=== PATIENT | male | born 1945 | race African-American/Black ===

== ENCOUNTER 2017-01-31 10:51 | Inpatient (IN) | payer MEDICARE, OTHER ==
[~2017-01-31] VITALS: Ht 190.5 cm; Wt 72.3 kg
[2017-01-31] MEDS ORDERED: OXYC10 PO (10:57)
[2017-01-31] MEDS ORDERED: HYPERTENSION PO (10:57)
[2017-01-31 11:56] LABS: HEMATOCRIT 34.7 % (41-53); HEMOGLOBIN 11.3 g/dL (13.5-17.5); MEAN CORPUSCULAR HEMOGLOBIN 22.4 pg (26.0-34.0); MEAN CORPUSCULAR HGB CONC 32.5 G/dL (31.0-37.0); MEAN CORPUSCULAR VOLUME 69 fL (80-100); PLATELET COUNT (AUTO) 199 K/uL (150-450); RED BLOOD CELL COUNT(AUTO) 5.03 MIL/uL (4.50-5.90); RED CELL DISTRIBUTION WIDTH 20.5 % (11.5-14.5); WHITE BLOOD COUNT (AUTO) 3.8 K/uL (4.5-11.0)
[2017-01-31] MEDS ORDERED: ALBUTEROL SULFATE 2.5 MG/0.5 ML NEB SOLUTION NEB ONE (12:00)
[2017-01-31] MEDS ORDERED: IPRATROPIUM BROMIDE 0.5 MG/2.5 ML NEB SOLUTION NEB ONE (12:00)
[2017-01-31 12:10] LABS: B-TYPE NATRIURETIC PEPTIDE 107 pg/mL (0-100)
[2017-01-31 12:21] LABS: PROTHROMBIN TIME 10.9 SEC (9.4-11.6)
[2017-01-31 12:23] LABS: ALANINE AMINOTRANSFERASE 40 U/L (12-78); ALBUMIN 3.2 g/dL (3.4-5.0); ANION GAP 6 mmol/L (8-16); ASPARTATE AMINOTRANSFERASE 61 U/L (15-37); BILIRUBIN,TOTAL 0.5 mg/dL (0.1-1.0); CALCIUM, TOTAL 8.5 mg/dL (8.8-10.5); CARBON DIOXIDE 24 mmol/L (22-29); CHLORIDE 104 mmol/L (98-107); CREATINE KINASE MB 2.1 ng/mL (0-5); CREATINE KINASE, TOTAL 123 U/L (39-308); CREATININE 1.13 mg/dL (0.60-1.30); GLOMERULAR FILTR. RATE CALC > 60 mL/min (>60); POTASSIUM 4.1 mmol/L (3.5-5.1); SODIUM SERUM 134 mmol/L (136-145); TOTAL PROTEIN, SERUM 7.9 g/dL (6.4-8.2)
[2017-01-31 12:38] LABS: UREA NITROGEN, BLOOD 14 mg/dL (7-18)
[2017-01-31] MEDS ORDERED: ONDANSETRON HCL 4 MG/2 ML VIAL IVP PRN (12:45)
[2017-01-31] MEDS ORDERED: MAGNESIUM HYDROXIDE SUSPENSION 30 ML UDCUP PO PRN (12:45)
[2017-01-31] MEDS ORDERED: HEPARIN SODIUM 25000 UNITS/D5W 250 ML IV PRN (12:45)
[2017-01-31] MEDS ORDERED: ACETAMINOPHEN 325 MG TABLET PO PRN ×2 (12:45)
[2017-01-31] MEDS ORDERED: ASPIRIN 81 MG CHEWABLE TABLET PO ONE (12:45)
[2017-01-31] MEDS ORDERED: ALBUTEROL SULFATE 2.5 MG/0.5 ML NEB SOLUTION NEB PRN (12:45)
[2017-01-31] MEDS ORDERED: HEPARIN SODIUM,PORCINE 5,000 UNITS/ML VIAL IVP ONE ×2 (12:45)
[2017-01-31] MEDS ORDERED: 0.9% SODIUM CHLORIDE 10 ML SYRINGE IVP PRN (12:45)
[2017-01-31] MEDS ORDERED: HEPARIN SODIUM,PORCINE 5,000 UNITS/ML VIAL IVP PRN ×2 (12:45)
[2017-01-31 12:52] LABS: BAND NEUTROPHILS % (MANUAL) 2 % (1-5); LYMPHOCYTES % (MANUAL) 35 % (22-44); TOTAL CELLS COUNTED 100
[2017-01-31 12:53] LABS: RBC MORPHOLOGY COMMENT ABNORMAL R
[2017-01-31] MEDS: PANTOPRAZOLE SODIUM 40 MG DR TABLET PO SCH (13:00)
[2017-01-31] MEDS ORDERED: NITROGLYCERIN 2% (1 GM=INCH) PACKET TP ONE (13:15)
[2017-01-31] MEDS ORDERED: MORPHINE SULFATE 4 MG/ML SYRINGE IVP ONE (13:15)
[2017-01-31] MEDS ORDERED: ONDANSETRON HCL 4 MG/2 ML VIAL IVP ONE (13:15)
[2017-01-31 13:16] LABS: INR 1.1 (0.9-1.1); PROTHROMBIN TIME 11.1 SEC (9.4-11.6)
[2017-01-31 13:41] LABS: APPEARANCE,URINE CLEAR (CLEAR); GLUCOSE, URINE (UA) NEGATIVE (NEGATIVE); KETONES,URINE NEGATIVE (NEGATIVE); LEUKOCYTE ESTERASE ,URINE TRACE (NEGATIVE); OCCULT BLOOD,URINE NEGATIVE (NEGATIVE); PROTEIN,URINE NEGATIVE (NEGATIVE)
[2017-01-31 13:42] LABS: ADD UA MICROSCOPIC YES
[2017-01-31 13:45] LABS: RBC,URINE None Seen /HPF (0-2); WBC,URINE 0-2 /HPF (0-5)
[2017-01-31 15:12] LABS: GLUCOSE,POINT OF CARE 109 MG/DL (70-110)
[2017-01-31] MEDS ORDERED: NOREPINEPHRINE 4 MG/D5%-WATER 250 ML IV ONE (15:24)
[2017-01-31 15:40] VITALS: BP 96/62
[2017-01-31 16:00] VITALS: BP 109/73
[2017-01-31] MEDS ORDERED: DEXTROSE 50%-WATER 25 GM/50 ML SYRINGE IVP PRN (16:00)
[2017-01-31] MEDS: ASPIRIN 81 MG CHEWABLE TABLET PO SCH (17:05)
[2017-01-31 20:00] VITALS: BP 130/68
[2017-01-31] MEDS: ATORVASTATIN CALCIUM 40 MG TABLET PO SCH (22:53)
[2017-01-31] MEDS: DOCUSATE SODIUM 100 MG CAPSULE PO SCH (22:53)
[2017-02-01] VITALS: BP 131/71
[2017-02-01 03:16] LABS: ANION GAP 5 mmol/L (8-16); CARBON DIOXIDE 26 mmol/L (22-29); CHLORIDE 105 mmol/L (98-107); CREATININE 1.13 mg/dL (0.60-1.30); GLOMERULAR FILTR. RATE CALC > 60 mL/min (>60); POTASSIUM 4.4 mmol/L (3.5-5.1); SODIUM SERUM 136 mmol/L (136-145); UREA NITROGEN, BLOOD 13 mg/dL (7-18)
[2017-02-01 03:25] LABS: HEMATOCRIT 30.5 % (41-53); HEMOGLOBIN 9.6 g/dL (13.5-17.5); MEAN CORPUSCULAR HEMOGLOBIN 22.3 pg (26.0-34.0); MEAN CORPUSCULAR HGB CONC 31.4 G/dL (31.0-37.0); MEAN CORPUSCULAR VOLUME 71 fL (80-100); PLATELET COUNT (AUTO) 165 K/uL (150-450); RED BLOOD CELL COUNT(AUTO) 4.31 MIL/uL (4.50-5.90); RED CELL DISTRIBUTION WIDTH 20.4 % (11.5-14.5); WHITE BLOOD COUNT (AUTO) 3.5 K/uL (4.5-11.0)
[2017-02-01 03:55] LABS: BAND NEUTROPHILS % (MANUAL) 2 % (1-5); TOTAL CELLS COUNTED 100
[2017-02-01 03:56] LABS: EOSINOPHILS % (MANUAL) 2 % (1-6); LYMPHOCYTES % (MANUAL) 46 % (22-44); RBC MORPHOLOGY COMMENT ABNORMAL RBC MORPH
[2017-02-01 04:00] VITALS: BP 139/74
[2017-02-01] MEDS ORDERED: HEPARIN SODIUM 25000 UNITS/D5W 250 ML IV PRN (06:36)
[2017-02-01] MEDS ORDERED: HEPARIN SODIUM,PORCINE 5,000 UNITS/ML VIAL IVP PRN ×2 (06:45)
[2017-02-01] MEDS ORDERED: HEPARIN SODIUM,PORCINE 5,000 UNITS/ML VIAL IVP ONE (06:45)
[2017-02-01 08:00] VITALS: BP 170/86
[2017-02-01] MEDS: PANTOPRAZOLE SODIUM 40 MG DR TABLET PO SCH (08:41)
[2017-02-01] MEDS: DOCUSATE SODIUM 100 MG CAPSULE PO SCH ×2 (08:41→20:30)
[2017-02-01] MEDS: ASPIRIN 81 MG CHEWABLE TABLET PO SCH (08:41)
[2017-02-01 10:51] LABS: GLUCOSE,POINT OF CARE 110 MG/DL (70-110)
[2017-02-01 10:55] LABS: GLUCOSE,POINT OF CARE 96 MG/DL (70-110)
[2017-02-01 11:09] LABS: GLUCOSE,POINT OF CARE 76 MG/DL (70-110)
[2017-02-01 12:00] VITALS: BP 152/107
[2017-02-01 16:43] VITALS: BP 146/80
[2017-02-01] MEDS ORDERED: NICOTINE 7 MG/24 HOUR PATCH TD ONE (16:45)
[2017-02-01 17:08] LABS: GLUCOSE,POINT OF CARE 76 MG/DL (70-110)
[2017-02-01 20:00] VITALS: BP 152/74
[2017-02-01] MEDS: ATORVASTATIN CALCIUM 40 MG TABLET PO SCH (20:30)
[2017-02-01] MEDS: NICOTINE 21 MG/24 HOUR PATCH TD SCH (20:31)
[2017-02-01] MEDS: INSULIN ASPART 100 UNITS/ML SQ PRN (21:06)
[2017-02-01 21:12] LABS: GLUCOSE,POINT OF CARE 117 MG/DL (70-110)
[2017-02-02] VITALS (20 sets, daily range): BP systolic 96–153; BP diastolic 50–93
[2017-02-02 04:52] LABS: GLUCOSE,POINT OF CARE 89 MG/DL (70-110)
[2017-02-02] MEDS: INSULIN ASPART 100 UNITS/ML SQ PRN (05:13)
[2017-02-02 05:41] LABS: HEMOGLOBIN 9.4 g/dL (13.5-17.5); MEAN CORPUSCULAR HEMOGLOBIN 22.9 pg (26.0-34.0); MEAN CORPUSCULAR HGB CONC 32.5 G/dL (31.0-37.0); MEAN CORPUSCULAR VOLUME 71 fL (80-100); PLATELET COUNT (AUTO) 172 K/uL (150-450); RED BLOOD CELL COUNT(AUTO) 4.11 MIL/uL (4.50-5.90); RED CELL DISTRIBUTION WIDTH 19.7 % (11.5-14.5); WHITE BLOOD COUNT (AUTO) 3.6 K/uL (4.5-11.0)
[2017-02-02 05:57] LABS: ANION GAP 5 mmol/L (8-16); CALCIUM, TOTAL 8.3 mg/dL (8.8-10.5); CARBON DIOXIDE 26 mmol/L (22-29); CHLORIDE 104 mmol/L (98-107); CREATININE 1.12 mg/dL (0.60-1.30); GLOMERULAR FILTR. RATE CALC > 60 mL/min (>60); POTASSIUM 4.2 mmol/L (3.5-5.1); SODIUM SERUM 135 mmol/L (136-145); UREA NITROGEN, BLOOD 18 mg/dL (7-18)
[2017-02-02] MEDS ORDERED: METOPROLOL TARTRATE 5 MG/5 ML VIAL ONE (08:05)
[2017-02-02] MEDS ORDERED: METOPROLOL TARTRATE 5 MG/5 ML VIAL IVP ONE (08:15)
[2017-02-02] MEDS ORDERED: LIDOCAINE HCL/PF 1% 30 ML VIAL ONE (08:45)
[2017-02-02] MEDS ORDERED: IOHEXOL 300 MG/ML 150 ML VIAL ONE (08:45)
[2017-02-02] MEDS ORDERED: HEPARIN SODIUM 1000 UNITS/NS 500 ML ONE ×2 (08:45→08:50)
[2017-02-02] MEDS ORDERED: IOHEXOL 300 MG/ML 100 ML VIAL ONE (09:04)
[2017-02-02] MEDS ORDERED: SODIUM CHLORIDE 0.9% 500 ML IV ONE (09:18)
[2017-02-02] MEDS ORDERED: HEPARIN SODIUM 1000 UNITS/NS 1,000 ML IARTER ONE (09:18)
[2017-02-02] MEDS ORDERED: TICAGRELOR 90 MG TABLET ONE (09:22)
[2017-02-02] MEDS ORDERED: ASPIRIN 81 MG CHEWABLE TABLET ONE (09:22)
[2017-02-02 09:29] LABS: BAND NEUTROPHILS % (MANUAL) 1 % (1-5); EOSINOPHILS % (MANUAL) 2 % (1-6); LYMPHOCYTES % (MANUAL) 47 % (22-44); TOTAL CELLS COUNTED 100
[2017-02-02] MEDS ORDERED: IOHEXOL 300 MG/ML 150 ML VIAL IARTER ONE (09:30)
[2017-02-02] MEDS ORDERED: LIDOCAINE HCL/PF 1% 30 ML VIAL INJ ONE (09:30)
[2017-02-02 09:32] LABS: RBC MORPHOLOGY COMMENT ABNORMAL R
[2017-02-02] MEDS: NICOTINE 21 MG/24 HOUR PATCH TD SCH (11:39)
[2017-02-02] MEDS: PANTOPRAZOLE SODIUM 40 MG DR TABLET PO SCH (11:39)
[2017-02-02] MEDS: DOCUSATE SODIUM 100 MG CAPSULE PO SCH ×2 (11:39→21:42)
[2017-02-02 12:22] LABS: GLUCOSE,POINT OF CARE 83 MG/DL (70-110)
[2017-02-02] MEDS ORDERED: MORPHINE SULFATE 2 MG/ML SYRINGE IVP ONE (13:45)
[2017-02-02] MEDS ORDERED: METOPROLOL SUCCINATE 25 MG ER TABLET PO SCH (13:45)
[2017-02-02] MEDS ORDERED: MORPHINE SULFATE 4 MG/ML SYRINGE ONE (13:52)
[2017-02-02] MEDS ORDERED: 0.9% SODIUM CHLORIDE 10 ML SYRINGE IVP PRN (16:00)
[2017-02-02] MEDS ORDERED: ONDANSETRON HCL 4 MG/2 ML VIAL IVP PRN (16:00)
[2017-02-02 17:12] LABS: GLUCOSE,POINT OF CARE 100 MG/DL (70-110)
[2017-02-02] MEDS: METOPROLOL TARTRATE 25 MG TABLET PO SCH (21:42)
[2017-02-02] MEDS: ATORVASTATIN CALCIUM 40 MG TABLET PO SCH (21:42)
[2017-02-02] MEDS: TICAGRELOR 90 MG TABLET PO SCH (23:52)
[2017-02-03 02:03] LABS: GLUCOSE,POINT OF CARE 110 MG/DL (70-110)
[2017-02-03 05:17] VITALS: BP 136/78
[2017-02-03] MEDS: LORazepam 2 MG/ML VIAL IVP PRN ×4 (06:39→20:12)
[2017-02-03 08:03] LABS: ANION GAP 10 mmol/L (8-16); CALCIUM, TOTAL 8.8 mg/dL (8.8-10.5); CARBON DIOXIDE 25 mmol/L (22-29); CHLORIDE 100 mmol/L (98-107); CREATININE 1.19 mg/dL (0.60-1.30); GLOMERULAR FILTR. RATE CALC > 60 mL/min (>60); POTASSIUM 3.9 mmol/L (3.5-5.1); SODIUM SERUM 135 mmol/L (136-145); UREA NITROGEN, BLOOD 19 mg/dL (7-18)
[2017-02-03 08:13] LABS: BASOPHILS # (AUTO) 0.01 K/uL (0.00-0.20); BASOPHILS % (AUTO) 0.1 % (0.0-2.0); EOSINOPHILS # (AUTO) 0.01 K/uL (0.00-0.70); EOSINOPHILS % (AUTO) 0.07 % (1.0-6.0); HEMATOCRIT 31.8 % (41-53); LYMPHOCYTES % (AUTO) 10.8 % (22.0-44.0); MEAN CORPUSCULAR HEMOGLOBIN 22.5 pg (26.0-34.0); MEAN CORPUSCULAR HGB CONC 31.5 G/dL (31.0-37.0); MEAN CORPUSCULAR VOLUME 71 fL (80-100); MONOCYTES # (AUTO) 1.1 K/uL (0.1-1.0); MONOCYTES % (AUTO) 12.7 % (2.0-9.0); NEUTROPHILS # (AUTO) 6.9 K/uL (1.8-7.7); NEUTROPHILS % (AUTO) 76.3 % (40.0-70.0); PLATELET COUNT (AUTO) 219 K/uL (150-450); RED BLOOD CELL COUNT(AUTO) 4.45 MIL/uL (4.50-5.90); RED CELL DISTRIBUTION WIDTH 20.2 % (11.5-14.5)
[2017-02-03] MEDS: TICAGRELOR 90 MG TABLET PO SCH ×2 (08:58→20:11)
[2017-02-03] MEDS: ASPIRIN 81 MG CHEWABLE TABLET PO SCH (08:58)
[2017-02-03] MEDS: PANTOPRAZOLE SODIUM 40 MG DR TABLET PO SCH (08:59)
[2017-02-03] MEDS: DOCUSATE SODIUM 100 MG CAPSULE PO SCH ×2 (08:59→20:11)
[2017-02-03] MEDS: METOPROLOL TARTRATE 25 MG TABLET PO SCH ×2 (08:59→20:11)
[2017-02-03] MEDS: NICOTINE 21 MG/24 HOUR PATCH TD SCH (08:59)
[2017-02-03 09:42] VITALS: BP 146/84
[2017-02-03 11:57] VITALS: BP 140/82
[2017-02-03 15:23] VITALS: BP 153/83
[2017-02-03 19:35] VITALS: BP 148/74
[2017-02-03] MEDS: ATORVASTATIN CALCIUM 40 MG TABLET PO SCH (20:11)
[2017-02-03 23:24] VITALS: BP 150/79
[2017-02-04 05:14] VITALS: BP 140/80
[2017-02-04 05:27] LABS: GLUCOSE,POINT OF CARE 117 MG/DL (70-110)
[2017-02-04 05:28] LABS: GLUCOSE,POINT OF CARE 94 MG/DL (70-110)
[2017-02-04 06:38] LABS: BASOPHILS % (AUTO) 0.7 % (0.0-2.0); EOSINOPHILS % (AUTO) 2.5 % (1.0-6.0); HEMATOCRIT 30.3 % (41-53); HEMOGLOBIN 9.7 g/dL (13.5-17.5); LYMPHOCYTES # (AUTO) 1.9 K/uL (1.0-4.8); MEAN CORPUSCULAR HEMOGLOBIN 22.9 pg (26.0-34.0); MEAN CORPUSCULAR HGB CONC 31.9 G/dL (31.0-37.0); MEAN CORPUSCULAR VOLUME 72 fL (80-100); MONOCYTES # (AUTO) 0.9 K/uL (0.1-1.0); MONOCYTES % (AUTO) 15.1 % (2.0-9.0); NEUTROPHILS # (AUTO) 3.3 K/uL (1.8-7.7); NEUTROPHILS % (AUTO) 51.7 % (40.0-70.0); PLATELET COUNT (AUTO) 226 K/uL (150-450); RED BLOOD CELL COUNT(AUTO) 4.22 MIL/uL (4.50-5.90); RED CELL DISTRIBUTION WIDTH 20.3 % (11.5-14.5); WHITE BLOOD COUNT (AUTO) 6.3 K/uL (4.5-11.0)
[2017-02-04 06:47] LABS: ANION GAP 8 mmol/L (8-16); CALCIUM, TOTAL 8.4 mg/dL (8.8-10.5); CARBON DIOXIDE 26 mmol/L (22-29); CHLORIDE 105 mmol/L (98-107); GLOMERULAR FILTR. RATE CALC > 60 mL/min (>60); POTASSIUM 4.1 mmol/L (3.5-5.1); SODIUM SERUM 139 mmol/L (136-145); UREA NITROGEN, BLOOD 17 mg/dL (7-18)
[2017-02-04 07:45] VITALS: BP 138/82
[2017-02-04] MEDS: TICAGRELOR 90 MG TABLET PO SCH ×2 (09:36→21:09)
[2017-02-04] MEDS: PANTOPRAZOLE SODIUM 40 MG DR TABLET PO SCH (09:36)
[2017-02-04] MEDS: NICOTINE 21 MG/24 HOUR PATCH TD SCH (09:36)
[2017-02-04] MEDS: METOPROLOL TARTRATE 25 MG TABLET PO SCH ×2 (09:36→21:08)
[2017-02-04] MEDS: DOCUSATE SODIUM 100 MG CAPSULE PO SCH ×2 (09:36→21:09)
[2017-02-04] MEDS: ASPIRIN 81 MG CHEWABLE TABLET PO SCH (09:36)
[2017-02-04 11:43] VITALS: BP 120/66
[2017-02-04 15:00] VITALS: BP 120/64
[2017-02-04 16:53] LABS: GLUCOSE,POINT OF CARE 80 MG/DL (70-110)
[2017-02-04 16:53] LABS: GLUCOSE,POINT OF CARE 105 MG/DL (70-110)
[2017-02-04 16:53] LABS: GLUCOSE,POINT OF CARE 88 MG/DL (70-110)
[2017-02-04 16:54] LABS: GLUCOSE,POINT OF CARE 91 MG/DL (70-110)
[2017-02-04 20:10] VITALS: BP 124/73
[2017-02-04] MEDS: ATORVASTATIN CALCIUM 40 MG TABLET PO SCH (21:08)
[2017-02-04] MEDS: LORazepam 2 MG/ML VIAL IVP PRN (21:10)
[2017-02-04 22:37] LABS: GLUCOSE,POINT OF CARE 102 MG/DL (70-110)
[2017-02-05 00:57] VITALS: BP 124/74
[2017-02-05 05:23] VITALS: BP 125/74
[2017-02-05 07:14] LABS: BASOPHILS % (AUTO) 1.4 % (0.0-2.0); EOSINOPHILS % (AUTO) 2.8 % (1.0-6.0); HEMATOCRIT 28.8 % (41-53); HEMOGLOBIN 9.5 g/dL (13.5-17.5); LYMPHOCYTES # (AUTO) 1.4 K/uL (1.0-4.8); LYMPHOCYTES % (AUTO) 31.9 % (22.0-44.0); MEAN CORPUSCULAR HEMOGLOBIN 23.3 pg (26.0-34.0); MEAN CORPUSCULAR VOLUME 71 fL (80-100); MONOCYTES # (AUTO) 0.9 K/uL (0.1-1.0); MONOCYTES % (AUTO) 18.9 % (2.0-9.0); PLATELET COUNT (AUTO) 206 K/uL (150-450); RED BLOOD CELL COUNT(AUTO) 4.07 MIL/uL (4.50-5.90); RED CELL DISTRIBUTION WIDTH 20.3 % (11.5-14.5); WHITE BLOOD COUNT (AUTO) 4.5 K/uL (4.5-11.0)
[2017-02-05 08:03] VITALS: BP 132/81
[2017-02-05 08:22] LABS: GLUCOSE,POINT OF CARE 82 MG/DL (70-110)
[2017-02-05] MEDS: METOPROLOL TARTRATE 25 MG TABLET PO SCH (08:36)
[2017-02-05] MEDS: TICAGRELOR 90 MG TABLET PO SCH (08:36)
[2017-02-05] MEDS: ASPIRIN 81 MG CHEWABLE TABLET PO SCH (08:36)
[2017-02-05] MEDS: PANTOPRAZOLE SODIUM 40 MG DR TABLET PO SCH (08:36)
[2017-02-05] MEDS: DOCUSATE SODIUM 100 MG CAPSULE PO SCH (08:37)
[2017-02-05] MEDS: NICOTINE 21 MG/24 HOUR PATCH TD SCH (08:38)
[2017-02-05 09:30] LABS: RBC MORPHOLOGY COMMENT ABNORMAL RBC MORPH
[2017-02-05 12:20] VITALS: BP 119/70
[2017-02-05 15:02] LABS: GLUCOSE,POINT OF CARE 110 MG/DL (70-110)
[2017-02-05] MEDS ORDERED: DSS100 PO (15:25)
[2017-02-05] MEDS ORDERED: ASPI-1061 PO (15:25)
[2017-02-05] MEDS ORDERED: ATOR40TA28 PO (15:25)
[2017-02-05] MEDS ORDERED: NICO21T TD (15:26)
[2017-02-05] MEDS ORDERED: METO25 PO (15:26)
[2017-02-05] MEDS ORDERED: PANT40TA25 PO (15:26)
[2017-02-05] MEDS ORDERED: TICA90TA PO (15:27)
[2017-02-05] MEDS ORDERED: ACET-2247 PO (15:28)
[2017-02-05] MEDS ORDERED: AUD NEB (15:29)
[2017-02-05] MEDS ORDERED: INSNOV SQ (15:30)
[2017-02-05] MEDS ORDERED: MOM30 PO (15:30)
[2017-02-05] MEDS ORDERED: ONDA4 PO (15:31)
[2017-02-11 06:23] LABS: GLUCOSE,POINT OF CARE 83 MG/DL (70-110)
== END 2017-02-05 17:20 | disposition home or self-care (01) | DRG 281 ==
LOC: EMS 10:53 → 5S 13:17 → ICU 15:35 → 5S 02-02 17:05
PROVIDERS: ADMIT Internal Medicine; ATTEND Internal Medicine
PROC: 4A023N7 Measurement of Cardiac Sampling and Pressure, Left Heart, Percutaneous Approach (ICD-10-PCS; principal; 2017-02-02)
PROC: B2151ZZ Fluoroscopy of Left Heart using Low Osmolar Contrast (ICD-10-PCS; 2017-02-02)
PROC: B2111ZZ Fluoroscopy of Multiple Coronary Arteries using Low Osmolar Contrast (ICD-10-PCS; 2017-02-02)
PROC: B41G1ZZ Fluoroscopy of Left Lower Extremity Arteries using Low Osmolar Contrast (ICD-10-PCS; 2017-02-02)
DX: I21.4 Non-ST elevation (NSTEMI) myocardial infarction (principal); J98.11 Atelectasis; J44.9 Chronic obstructive pulmonary disease, unspecified; E11.9 Type 2 diabetes mellitus without complications; I10 Essential (primary) hypertension; F17.210 Nicotine dependence, cigarettes, uncomplicated; F15.90 Other stimulant use, unspecified, uncomplicated; F19.10 Other psychoactive substance abuse, uncomplicated; D64.9 Anemia, unspecified; I25.10 Atherosclerotic heart disease of native coronary artery without angina pectoris; F03.90 Unspecified dementia, unspecified severity, without behavioral disturbance, psychotic disturbance, mood disturbance, and anxiety; Z79.82 Long term (current) use of aspirin; Z79.4 Long term (current) use of insulin; Z91.19 Patient's noncompliance with other medical treatment and regimen; Z86.73 Personal history of transient ischemic attack (TIA), and cerebral infarction without residual deficits; Z59.0 Homelessness; Z95.5 Presence of coronary angioplasty implant and graft; Z83.3 Family history of diabetes mellitus; Z90.49 Acquired absence of other specified parts of digestive tract; Z82.49 Family history of ischemic heart disease and other diseases of the circulatory system; Z79.01 Long term (current) use of anticoagulants
CPT/HCPCS: 82962; 87081; 93005; 93306; 94640; 96374; 97163; 97166; 97535; 99291; J1644; J2060; J2270; J2405; J3490; Q9967

== ENCOUNTER 2018-04-02 11:39 | Inpatient (IN) | payer MEDICARE, OTHER ==
[~2018-04-02] VITALS: Ht 182.9 cm; Wt 68.6 kg
[~2018-04-02 11:39] MED LIST: ACET-2247 PO; ASPI81TA87 PO; ATOR40TA28 PO; AUD NEB; DSS100 PO; INSNOV SQ; METO25 PO; MOM30 PO; NICO21T TD; PANT40TA25 PO
[2018-04-02] MEDS ORDERED: DONE5TAB5 PO (12:08)
[2018-04-02] MEDS ORDERED: XALA2.5OS OU (12:15)
[2018-04-02] MEDS ORDERED: HYDR-309 PO (12:17)
[2018-04-02] MEDS ORDERED: PANT40TA PO (12:17)
[2018-04-02] MEDS ORDERED: FERR325T22 PO (12:20)
[2018-04-02 12:35] LABS: BASOPHILS % (AUTO) 0.7 % (0.0-2.0); EOSINOPHILS % (AUTO) 0.3 % (1.0-6.0); HEMATOCRIT 41.7 % (41-53); LYMPHOCYTES # (AUTO) 1.7 K/uL (1.0-4.8); LYMPHOCYTES % (AUTO) 22.3 % (22.0-44.0); MEAN CORPUSCULAR HEMOGLOBIN 27.8 pg (26.0-34.0); MEAN CORPUSCULAR HGB CONC 33.5 G/dL (31.0-37.0); MEAN CORPUSCULAR VOLUME 83 fL (80-100); MONOCYTES # (AUTO) 1.4 K/uL (0.1-1.0); MONOCYTES % (AUTO) 18.5 % (2.0-9.0); NEUTROPHILS # (AUTO) 4.5 K/uL (1.8-7.7); NEUTROPHILS % (AUTO) 58.2 % (40.0-70.0); PLATELET COUNT (AUTO) 351 K/uL (150-450); RED BLOOD CELL COUNT(AUTO) 5.02 MIL/uL (4.50-5.90); RED CELL DISTRIBUTION WIDTH 15.5 % (11.5-14.5)
[2018-04-02 12:55] LABS: ANION GAP 8 mmol/L (8-16); CALCIUM, TOTAL 8.1 mg/dL (8.8-10.5); CARBON DIOXIDE 25 mmol/L (22-29); CHLORIDE 99 mmol/L (98-107); CREATININE 0.85 mg/dL (0.60-1.30); GLUCOSE,RANDOM 126 mg/dL (70-110); POTASSIUM 3.7 mmol/L (3.5-5.1); SODIUM SERUM 132 mmol/L (136-145); UREA NITROGEN, BLOOD 8 mg/dL (7-18)
[2018-04-02 12:56] LABS: GLOMERULAR FILTR. RATE CALC > 60 mL/min (>60)
[2018-04-02 13:00] LABS: ALANINE AMINOTRANSFERASE 41 U/L (12-78); ALBUMIN 1.9 g/dL (3.4-5.0); ALKALINE PHOSPHATASE 100 U/L (46-116); ASPARTATE AMINOTRANSFERASE 58 U/L (15-37); BILIRUBIN,TOTAL 0.6 mg/dL (0.1-1.0); LIPASE 331 U/L (73-393); TOTAL PROTEIN, SERUM 8.3 g/dL (6.4-8.2)
[2018-04-02] MEDS ORDERED: SODIUM CHLORIDE 0.9% 1,000 ML IV ONE ×2 (13:15→15:00)
[2018-04-02] MEDS ORDERED: MORPHINE SULFATE 2 MG/ML SYRINGE IVP ONE (13:30)
[2018-04-02] MEDS ORDERED: IOVERSOL 350 MG/ML 100 ML VIAL ONE (13:43)
[2018-04-02] MEDS ORDERED: SODIUM CHLORIDE 0.9% 100 ML ONE (13:43)
[2018-04-02] MEDS ORDERED: ALBUTEROL SULFATE 2.5 MG/0.5 ML NEB SOLUTION NEB PRN (15:00)
[2018-04-02] MEDS ORDERED: ONDANSETRON HCL 4 MG/2 ML VIAL IVP PRN (15:00)
[2018-04-02] MEDS ORDERED: MAGNESIUM HYDROXIDE SUSPENSION 30 ML UDCUP PO PRN (15:00)
[2018-04-02] MEDS ORDERED: LORazepam 2 MG/ML VIAL IVP ONE (15:00)
[2018-04-02] MEDS ORDERED: 0.9% SODIUM CHLORIDE 10 ML SYRINGE IVP PRN (15:00)
[2018-04-02] MEDS ORDERED: DEXTROSE 50%-WATER 25 GM/50 ML SYRINGE IVP PRN (15:00)
[2018-04-02] MEDS ORDERED: ACETAMINOPHEN 325 MG TABLET PO PRN (15:00)
[2018-04-02] MEDS: ENOXAPARIN SODIUM 40 MG/0.4 ML PF SYRINGE SQ SCH (15:05)
[2018-04-02 17:33] LABS: APPEARANCE,URINE CLEAR (CLEAR); BILIRUBIN,URINE NEGATIVE (NEGATIVE); GLUCOSE, URINE (UA) NEGATIVE (NEGATIVE); KETONES,URINE NEGATIVE (NEGATIVE); LEUKOCYTE ESTERASE ,URINE NEGATIVE (NEGATIVE); NITRATE,URINE NEGATIVE (NEGATIVE); OCCULT BLOOD,URINE NEGATIVE (NEGATIVE); PROTEIN,URINE NEGATIVE (NEGATIVE)
[2018-04-02] MEDS ORDERED: MORPHINE SULFATE 4 MG/ML SYRINGE IVP ONE (17:45)
[2018-04-02 18:14] LABS: BACTERIA,URINE None Seen /HPF (None Seen); RBC,URINE None Seen /HPF (0-2); WBC,URINE 0-2 /HPF (0-5)
[2018-04-02 18:15] LABS: SQUAMOUS EPITHELIAL CELL,UR Rare /LPF (None Seen)
[2018-04-02 20:47] VITALS: BP 128/68
[2018-04-02] MEDS: DOCUSATE SODIUM 100 MG CAPSULE PO SCH ×2 (21:00→21:16)
[2018-04-02 23:30] LABS: GLUCOMETER DEV NAME(LOC) 6N 2D; GLUCOSE,POINT OF CARE 81 MG/DL (70-110)
[2018-04-02 23:59] VITALS: BP 132/74
[2018-04-03 04:00] VITALS: BP 145/82
[2018-04-03 07:13] VITALS: BP 133/82
[2018-04-03 07:36] LABS: GLUCOMETER DEV NAME(LOC) 6N 1E; GLUCOSE,POINT OF CARE 74 MG/DL (70-110)
[2018-04-03] MEDS: DOCUSATE SODIUM 100 MG CAPSULE PO SCH ×2 (08:39→21:12)
[2018-04-03] MEDS: ENOXAPARIN SODIUM 40 MG/0.4 ML PF SYRINGE SQ SCH (08:39)
[2018-04-03] MEDS: MORPHINE SULFATE 2 MG/ML SYRINGE IVP PRN (08:39)
[2018-04-03] MEDS: MULTIVITAMINS WITH MINERALS, THERAPEUTIC TABLET PO SCH (08:39)
[2018-04-03] MEDS ORDERED: ASPIRIN 81 MG CHEWABLE TABLET PO SCH (09:00)
[2018-04-03 11:58] VITALS: BP 128/69
[2018-04-03 15:42] VITALS: BP 122/71
[2018-04-03 17:09] LABS: GLUCOMETER DEV NAME(LOC) 6N 2D; GLUCOSE,POINT OF CARE 97 MG/DL (70-110)
[2018-04-03 19:21] VITALS: BP 118/71
[2018-04-04] VITALS (7 sets, daily range): BP systolic 116–145; BP diastolic 60–100
[2018-04-04 00:54] LABS: GLUCOMETER DEV NAME(LOC) 6N 1E; GLUCOSE,POINT OF CARE 105 MG/DL (70-110)
[2018-04-04 01:38] LABS: BASOPHILS % (AUTO) 1.2 % (0.0-2.0); EOSINOPHILS % (AUTO) 0.6 % (1.0-6.0); HEMATOCRIT 38.4 % (41-53); HEMOGLOBIN 12.8 g/dL (13.5-17.5); LYMPHOCYTES # (AUTO) 3.2 K/uL (1.0-4.8); LYMPHOCYTES % (AUTO) 31.8 % (22.0-44.0); MEAN CORPUSCULAR HEMOGLOBIN 27.6 pg (26.0-34.0); MEAN CORPUSCULAR HGB CONC 33.5 G/dL (31.0-37.0); MEAN CORPUSCULAR VOLUME 83 fL (80-100); MONOCYTES # (AUTO) 1.9 K/uL (0.1-1.0); MONOCYTES % (AUTO) 18.7 % (2.0-9.0); NEUTROPHILS # (AUTO) 4.8 K/uL (1.8-7.7); NEUTROPHILS % (AUTO) 47.7 % (40.0-70.0); PLATELET COUNT (AUTO) 355 K/uL (150-450); RED BLOOD CELL COUNT(AUTO) 4.65 MIL/uL (4.50-5.90); RED CELL DISTRIBUTION WIDTH 15.3 % (11.5-14.5)
[2018-04-04 01:44] LABS: ANION GAP 5 mmol/L (8-16); CALCIUM, TOTAL 7.8 mg/dL (8.8-10.5); CARBON DIOXIDE 26 mmol/L (22-29); CHLORIDE 101 mmol/L (98-107); CREATININE 0.74 mg/dL (0.60-1.30); GLUCOSE,RANDOM 90 mg/dL (70-110); SODIUM SERUM 132 mmol/L (136-145); UREA NITROGEN, BLOOD 5 mg/dL (7-18)
[2018-04-04 01:45] LABS: INR 1.2 (0.9-1.1); PROTHROMBIN TIME 12.3 SEC (9.4-11.6)
[2018-04-04 01:46] LABS: GLOMERULAR FILTR. RATE CALC > 60 mL/min (>60)
[2018-04-04 06:35] LABS: GLUCOMETER DEV NAME(LOC) 6N 2D; GLUCOSE,POINT OF CARE 91 MG/DL (70-110)
[2018-04-04] MEDS: MORPHINE SULFATE 2 MG/ML SYRINGE IVP PRN (07:56)
[2018-04-04] MEDS: DOCUSATE SODIUM 100 MG CAPSULE PO SCH ×2 (07:56→20:37)
[2018-04-04] MEDS: MULTIVITAMINS WITH MINERALS, THERAPEUTIC TABLET PO SCH (07:56)
[2018-04-04] MEDS: ACETAMINOPHEN 325 MG TABLET PO PRN (23:53)
[2018-04-05] MEDS: MORPHINE SULFATE 2 MG/ML SYRINGE IVP PRN (00:18)
[2018-04-05 04:28] VITALS: BP 102/60
[2018-04-05 06:32] LABS: GLUCOMETER DEV NAME(LOC) 6N 1E; GLUCOSE,POINT OF CARE 81 MG/DL (70-110)
[2018-04-05 06:35] LABS: BASOPHILS % (AUTO) 0.5 % (0.0-2.0); EOSINOPHILS % (AUTO) 0.8 % (1.0-6.0); HEMATOCRIT 36.8 % (41-53); HEMOGLOBIN 12.5 g/dL (13.5-17.5); LYMPHOCYTES # (AUTO) 2.5 K/uL (1.0-4.8); LYMPHOCYTES % (AUTO) 28.9 % (22.0-44.0); MEAN CORPUSCULAR HEMOGLOBIN 27.8 pg (26.0-34.0); MEAN CORPUSCULAR VOLUME 82 fL (80-100); MONOCYTES # (AUTO) 1.8 K/uL (0.1-1.0); MONOCYTES % (AUTO) 21.1 % (2.0-9.0); NEUTROPHILS # (AUTO) 4.2 K/uL (1.8-7.7); NEUTROPHILS % (AUTO) 48.7 % (40.0-70.0); PLATELET COUNT (AUTO) 351 K/uL (150-450); RED CELL DISTRIBUTION WIDTH 15.3 % (11.5-14.5)
[2018-04-05 06:43] LABS: INR 1.2 (0.9-1.1); PROTHROMBIN TIME 12.6 SEC (9.4-11.6)
[2018-04-05 06:57] LABS: ANION GAP 7 mmol/L (8-16); CALCIUM, TOTAL 8.1 mg/dL (8.8-10.5); CARBON DIOXIDE 26 mmol/L (22-29); CHLORIDE 102 mmol/L (98-107); CREATININE 0.66 mg/dL (0.60-1.30); GLUCOSE,RANDOM 92 mg/dL (70-110); POTASSIUM 3.3 mmol/L (3.5-5.1); SODIUM SERUM 135 mmol/L (136-145); UREA NITROGEN, BLOOD 6 mg/dL (7-18)
[2018-04-05 07:00] LABS: GLOMERULAR FILTR. RATE CALC > 60 mL/min (>60)
[2018-04-05] MEDS: ENOXAPARIN SODIUM 40 MG/0.4 ML PF SYRINGE SQ SCH (09:00)
[2018-04-05] MEDS: ASPIRIN 81 MG CHEWABLE TABLET PO SCH (09:00)
[2018-04-05] MEDS: DOCUSATE SODIUM 100 MG CAPSULE PO SCH ×2 (09:42→21:34)
[2018-04-05] MEDS: MULTIVITAMINS WITH MINERALS, THERAPEUTIC TABLET PO SCH (09:42)
[2018-04-05] MEDS ORDERED: POTASSIUM CHL 10 MEQ/WATER 50 ML IV PRN ×2 (10:30)
[2018-04-05] MEDS ORDERED: POTASSIUM CHLORIDE 20 MEQ ER TABLET PO PRN ×2 (10:30)
[2018-04-05] MEDS: LORazepam 2 MG/ML VIAL IVP PRN ×2 (10:38→16:02)
[2018-04-05] MEDS ORDERED: LIDOCAINE HCL/PF 1% 30 ML VIAL ONE (10:44)
[2018-04-05] MEDS ORDERED: GELATIN SPONGE,ABSORBABLE 12-7 MM TP ONE (10:44)
[2018-04-05 13:31] VITALS: BP 122/89
[2018-04-05 15:06] VITALS: BP 110/69
[2018-04-05 15:29] LABS: GLUCOMETER DEV NAME(LOC) 5S 2Q; GLUCOSE,POINT OF CARE 102 MG/DL (70-110)
[2018-04-05 16:47] LABS: BASOPHILS % (AUTO) 0.7 % (0.0-2.0); EOSINOPHILS % (AUTO) 0.1 % (1.0-6.0); HEMATOCRIT 42.5 % (41-53); HEMOGLOBIN 14.1 g/dL (13.5-17.5); LYMPHOCYTES # (AUTO) 1.5 K/uL (1.0-4.8); LYMPHOCYTES % (AUTO) 21.4 % (22.0-44.0); MEAN CORPUSCULAR HEMOGLOBIN 27.8 pg (26.0-34.0); MEAN CORPUSCULAR HGB CONC 33.2 G/dL (31.0-37.0); MEAN CORPUSCULAR VOLUME 84 fL (80-100); MONOCYTES # (AUTO) 1.2 K/uL (0.1-1.0); MONOCYTES % (AUTO) 17.6 % (2.0-9.0); NEUTROPHILS # (AUTO) 4.3 K/uL (1.8-7.7); NEUTROPHILS % (AUTO) 60.2 % (40.0-70.0); PLATELET COUNT (AUTO) 369 K/uL (150-450); RED BLOOD CELL COUNT(AUTO) 5.08 MIL/uL (4.50-5.90); RED CELL DISTRIBUTION WIDTH 15.3 % (11.5-14.5)
[2018-04-05 19:46] VITALS: BP 126/72
[2018-04-05] MEDS: INSULIN LISPRO 100 UNITS/ML SQ PRN (21:40)
[2018-04-05 21:43] LABS: GLUCOMETER DEV NAME(LOC) 5S 2Q; GLUCOSE,POINT OF CARE 109 MG/DL (70-110)
[2018-04-05] MEDS ORDERED: EPHEDrine SULFATE 50 MG/ML VIAL IM ONE (22:53)
[2018-04-05] MEDS ORDERED: LIDOCAINE HCL/PF 2% 5 ML SYRINGE IVP ONE (22:53)
[2018-04-05] MEDS ORDERED: PROPOFOL 1% 20 ML VIAL IVP ONE (22:53)
[2018-04-05] MEDS ORDERED: MIDAZOLAM HCL 2 MG/2 ML VIAL IVP ONE (22:53)
[2018-04-05 23:30] VITALS: BP 132/76
[2018-04-06 00:08] LABS: GLUCOMETER DEV NAME(LOC) 5S 2Q; GLUCOSE,POINT OF CARE 110 MG/DL (70-110)
[2018-04-06 04:15] VITALS: BP 130/79
[2018-04-06] MEDS: MORPHINE SULFATE 2 MG/ML SYRINGE IVP PRN ×2 (04:16→14:01)
[2018-04-06 05:55] LABS: APPEARANCE,URINE CLEAR (CLEAR); BILIRUBIN,URINE NEGATIVE (NEGATIVE); GLUCOSE, URINE (UA) NEGATIVE (NEGATIVE); KETONES,URINE NEGATIVE (NEGATIVE); LEUKOCYTE ESTERASE ,URINE TRACE (NEGATIVE); NITRATE,URINE POSITIVE (NEGATIVE); OCCULT BLOOD,URINE NEGATIVE (NEGATIVE); PROTEIN,URINE NEGATIVE (NEGATIVE)
[2018-04-06] MEDS: INSULIN LISPRO 100 UNITS/ML SQ PRN ×2 (05:58→20:27)
[2018-04-06 06:50] LABS: BACTERIA,URINE Few /HPF (None Seen); RBC,URINE 0-2 /HPF (0-2); SQUAMOUS EPITHELIAL CELL,UR Rare /LPF (None Seen); WBC,URINE 0-2 /HPF (0-5)
[2018-04-06 07:04] LABS: BASOPHILS % (AUTO) 0.5 % (0.0-2.0); EOSINOPHILS % (AUTO) 0.2 % (1.0-6.0); HEMATOCRIT 40.2 % (41-53); HEMOGLOBIN 13.7 g/dL (13.5-17.5); LYMPHOCYTES # (AUTO) 1.8 K/uL (1.0-4.8); LYMPHOCYTES % (AUTO) 20.4 % (22.0-44.0); MEAN CORPUSCULAR HEMOGLOBIN 27.8 pg (26.0-34.0); MEAN CORPUSCULAR VOLUME 82 fL (80-100); MONOCYTES # (AUTO) 1.7 K/uL (0.1-1.0); MONOCYTES % (AUTO) 19.8 % (2.0-9.0); NEUTROPHILS # (AUTO) 5.1 K/uL (1.8-7.7); NEUTROPHILS % (AUTO) 59.1 % (40.0-70.0); PLATELET COUNT (AUTO) 410 K/uL (150-450); RED BLOOD CELL COUNT(AUTO) 4.93 MIL/uL (4.50-5.90); RED CELL DISTRIBUTION WIDTH 15.5 % (11.5-14.5)
[2018-04-06 07:14] LABS: INR 1.2 (0.9-1.1); PROTHROMBIN TIME 12.3 SEC (9.4-11.6)
[2018-04-06 07:35] LABS: ANION GAP 8 mmol/L (8-16); CALCIUM, TOTAL 8.2 mg/dL (8.8-10.5); CARBON DIOXIDE 25 mmol/L (22-29); CHLORIDE 104 mmol/L (98-107); CREATININE 0.73 mg/dL (0.60-1.30); GLUCOSE,RANDOM 99 mg/dL (70-110); POTASSIUM 3.8 mmol/L (3.5-5.1); SODIUM SERUM 137 mmol/L (136-145); UREA NITROGEN, BLOOD 5 mg/dL (7-18)
[2018-04-06 07:37] LABS: GLOMERULAR FILTR. RATE CALC > 60 mL/min (>60)
[2018-04-06 07:42] VITALS: BP 135/77
[2018-04-06] MEDS: ENOXAPARIN SODIUM 40 MG/0.4 ML PF SYRINGE SQ SCH (08:21)
[2018-04-06] MEDS: ASPIRIN 81 MG CHEWABLE TABLET PO SCH (08:21)
[2018-04-06] MEDS: MULTIVITAMINS WITH MINERALS, THERAPEUTIC TABLET PO SCH (08:22)
[2018-04-06] MEDS: DOCUSATE SODIUM 100 MG CAPSULE PO SCH ×2 (08:22→20:16)
[2018-04-06 11:13] VITALS: BP 137/75
[2018-04-06] MEDS ORDERED: DIGOXIN 250 MCG/ML 2 ML AMP IVP ONE (13:00)
[2018-04-06] MEDS: DILTIAZEM HCL 60 MG TABLET PO SCH ×2 (14:19→20:16)
[2018-04-06 15:50] VITALS: BP 128/73
[2018-04-06] MEDS ORDERED: LORazepam 2 MG/ML VIAL IM ONE (16:00)
[2018-04-06] MEDS ORDERED: SODIUM CHLORIDE 0.9% 1,000 ML IV ONE (16:00)
[2018-04-06 17:28] LABS: GLUCOMETER DEV NAME(LOC) 5S 2Q; GLUCOSE,POINT OF CARE 93 MG/DL (70-110)
[2018-04-06 17:28] LABS: GLUCOMETER DEV NAME(LOC) 5S 2Q; GLUCOSE,POINT OF CARE 95 MG/DL (70-110)
[2018-04-06 19:52] VITALS: BP 119/64
[2018-04-06 23:44] VITALS: BP 135/79
[2018-04-07 03:49] VITALS: BP 124/75
[2018-04-07] MEDS: INSULIN LISPRO 100 UNITS/ML SQ PRN (06:03)
[2018-04-07 07:03] LABS: GLUCOMETER DEV NAME(LOC) 5N 2S; GLUCOSE,POINT OF CARE 94 MG/DL (70-110)
[2018-04-07 07:03] LABS: GLUCOMETER DEV NAME(LOC) 5S 2Q; GLUCOSE,POINT OF CARE 105 MG/DL (70-110)
[2018-04-07 07:03] LABS: GLUCOMETER DEV NAME(LOC) 5S 2Q; GLUCOSE,POINT OF CARE 92 MG/DL (70-110)
[2018-04-07 07:10] VITALS: BP 111/70
[2018-04-07] MEDS: ENOXAPARIN SODIUM 40 MG/0.4 ML PF SYRINGE SQ SCH (08:20)
[2018-04-07] MEDS: DILTIAZEM HCL 60 MG TABLET PO SCH ×3 (08:20→20:42)
[2018-04-07] MEDS: ASPIRIN 81 MG CHEWABLE TABLET PO SCH (08:20)
[2018-04-07] MEDS: MULTIVITAMINS WITH MINERALS, THERAPEUTIC TABLET PO SCH (08:20)
[2018-04-07] MEDS: DOCUSATE SODIUM 100 MG CAPSULE PO SCH ×2 (08:20→20:42)
[2018-04-07 11:15] VITALS: BP 119/66
[2018-04-07 15:03] VITALS: BP 120/76
[2018-04-07] MEDS: MORPHINE SULFATE 2 MG/ML SYRINGE IVP PRN ×2 (16:30→21:44)
[2018-04-07 17:48] LABS: HEMATOCRIT 40.8 % (41-53); HEMOGLOBIN 13.8 g/dL (13.5-17.5); MEAN CORPUSCULAR HGB CONC 33.8 G/dL (31.0-37.0); MEAN CORPUSCULAR VOLUME 83 fL (80-100); PLATELET COUNT (AUTO) 409 K/uL (150-450); RED BLOOD CELL COUNT(AUTO) 4.93 MIL/uL (4.50-5.90); RED CELL DISTRIBUTION WIDTH 15.4 % (11.5-14.5)
[2018-04-07 17:56] LABS: ANION GAP 8 mmol/L (8-16); CARBON DIOXIDE 25 mmol/L (22-29); CHLORIDE 104 mmol/L (98-107); CREATININE 0.76 mg/dL (0.60-1.30); GLUCOSE,RANDOM 134 mg/dL (70-110); POTASSIUM 3.7 mmol/L (3.5-5.1); SODIUM SERUM 137 mmol/L (136-145); UREA NITROGEN, BLOOD 8 mg/dL (7-18)
[2018-04-07 17:57] LABS: GLOMERULAR FILTR. RATE CALC > 60 mL/min (>60)
[2018-04-07 18:08] LABS: GLUCOMETER DEV NAME(LOC) 5N 2S; GLUCOSE,POINT OF CARE 104 MG/DL (70-110)
[2018-04-07 18:13] LABS: BAND NEUTROPHILS % (MANUAL) 6 % (0-5); LYMPHOCYTES % (MANUAL) 22 % (22-44); MONOCYTES % (MANUAL) 18 % (2-9); SEGMENTED NEUTROPHILS % 54 % (40-70)
[2018-04-07 19:38] VITALS: BP 138/82
[2018-04-07 23:15] VITALS: BP 133/88
[2018-04-07] MEDS: ACETAMINOPHEN 325 MG TABLET PO PRN (23:50)
[2018-04-08] MEDS: ACETAMINOPHEN 325 MG TABLET PO PRN (04:26)
[2018-04-08 04:28] VITALS: BP 117/64
[2018-04-08] MEDS: INSULIN LISPRO 100 UNITS/ML SQ PRN (06:03)
[2018-04-08 07:21] VITALS: BP 133/73
[2018-04-08] MEDS ORDERED: SODIUM CHLORIDE 0.9% 1,000 ML IV ONE (08:13)
[2018-04-08] MEDS: ENOXAPARIN SODIUM 40 MG/0.4 ML PF SYRINGE SQ SCH (08:16)
[2018-04-08] MEDS: ASPIRIN 81 MG CHEWABLE TABLET PO SCH (08:17)
[2018-04-08] MEDS: DOCUSATE SODIUM 100 MG CAPSULE PO SCH ×2 (08:17→20:23)
[2018-04-08] MEDS: DILTIAZEM HCL 60 MG TABLET PO SCH ×3 (08:17→20:24)
[2018-04-08] MEDS: MULTIVITAMINS WITH MINERALS, THERAPEUTIC TABLET PO SCH (08:17)
[2018-04-08 09:04] LABS: BASOPHILS % (AUTO) 0.7 % (0.0-2.0); EOSINOPHILS % (AUTO) 0.6 % (1.0-6.0); HEMATOCRIT 38.1 % (41-53); HEMOGLOBIN 12.8 g/dL (13.5-17.5); LYMPHOCYTES # (AUTO) 2.5 K/uL (1.0-4.8); LYMPHOCYTES % (AUTO) 24.4 % (22.0-44.0); MEAN CORPUSCULAR HGB CONC 33.7 G/dL (31.0-37.0); MEAN CORPUSCULAR VOLUME 83 fL (80-100); MONOCYTES # (AUTO) 2.2 K/uL (0.1-1.0); MONOCYTES % (AUTO) 21.6 % (2.0-9.0); NEUTROPHILS # (AUTO) 5.4 K/uL (1.8-7.7); NEUTROPHILS % (AUTO) 52.7 % (40.0-70.0); PLATELET COUNT (AUTO) 359 K/uL (150-450); RED BLOOD CELL COUNT(AUTO) 4.59 MIL/uL (4.50-5.90); RED CELL DISTRIBUTION WIDTH 15.4 % (11.5-14.5)
[2018-04-08 09:23] LABS: ANION GAP 8 mmol/L (8-16); CARBON DIOXIDE 24 mmol/L (22-29); CHLORIDE 105 mmol/L (98-107); CREATININE 0.87 mg/dL (0.60-1.30); GLUCOSE,RANDOM 126 mg/dL (70-110); POTASSIUM 3.6 mmol/L (3.5-5.1); SODIUM SERUM 137 mmol/L (136-145); UREA NITROGEN, BLOOD 7 mg/dL (7-18)
[2018-04-08 09:53] LABS: GLOMERULAR FILTR. RATE CALC > 60 mL/min (>60)
[2018-04-08 10:47] VITALS: BP 115/64
[2018-04-08 15:08] VITALS: BP 117/76
[2018-04-08] MEDS: OxyCODONE HCL/ACETAMINOPHEN 5-325 MG TABLET PO PRN (16:58)
[2018-04-08 23:24] LABS: GLUCOMETER DEV NAME(LOC) 5S 2Q; GLUCOSE,POINT OF CARE 120 MG/DL (70-110)
[2018-04-08 23:24] LABS: GLUCOMETER DEV NAME(LOC) 5S 2Q; GLUCOSE,POINT OF CARE 110 MG/DL (70-110)
[2018-04-08 23:38] VITALS: BP 116/80
[2018-04-09 04:58] VITALS: BP 112/70
[2018-04-09 05:55] LABS: BASOPHILS % (AUTO) 0.6 % (0.0-2.0); EOSINOPHILS % (AUTO) 0.5 % (1.0-6.0); HEMATOCRIT 39.7 % (41-53); HEMOGLOBIN 13.8 g/dL (13.5-17.5); LYMPHOCYTES # (AUTO) 1.6 K/uL (1.0-4.8); LYMPHOCYTES % (AUTO) 17.2 % (22.0-44.0); MEAN CORPUSCULAR HEMOGLOBIN 28.7 pg (26.0-34.0); MEAN CORPUSCULAR HGB CONC 34.8 G/dL (31.0-37.0); MEAN CORPUSCULAR VOLUME 82 fL (80-100); MONOCYTES # (AUTO) 1.7 K/uL (0.1-1.0); MONOCYTES % (AUTO) 18.3 % (2.0-9.0); NEUTROPHILS # (AUTO) 5.9 K/uL (1.8-7.7); NEUTROPHILS % (AUTO) 63.4 % (40.0-70.0); PLATELET COUNT (AUTO) 435 K/uL (150-450); RED BLOOD CELL COUNT(AUTO) 4.82 MIL/uL (4.50-5.90); RED CELL DISTRIBUTION WIDTH 15.4 % (11.5-14.5)
[2018-04-09 06:11] LABS: ANION GAP 10 mmol/L (8-16); CARBON DIOXIDE 24 mmol/L (22-29); CHLORIDE 104 mmol/L (98-107); CREATININE 0.68 mg/dL (0.60-1.30); GLUCOSE,RANDOM 98 mg/dL (70-110); POTASSIUM 3.6 mmol/L (3.5-5.1); SODIUM SERUM 138 mmol/L (136-145); UREA NITROGEN, BLOOD 6 mg/dL (7-18)
[2018-04-09 06:28] LABS: GLUCOMETER DEV NAME(LOC) 5S 2Q; GLUCOSE,POINT OF CARE 89 MG/DL (70-110)
[2018-04-09 06:48] LABS: GLOMERULAR FILTR. RATE CALC > 60 mL/min (>60)
[2018-04-09 07:15] VITALS: BP 128/69
[2018-04-09] MEDS: ENOXAPARIN SODIUM 40 MG/0.4 ML PF SYRINGE SQ SCH (08:25)
[2018-04-09] MEDS: DILTIAZEM HCL 60 MG TABLET PO SCH ×3 (08:25→19:51)
[2018-04-09] MEDS: MULTIVITAMINS WITH MINERALS, THERAPEUTIC TABLET PO SCH (08:25)
[2018-04-09] MEDS: ASPIRIN 81 MG CHEWABLE TABLET PO SCH (08:25)
[2018-04-09] MEDS: DOCUSATE SODIUM 100 MG CAPSULE PO SCH ×2 (08:25→19:51)
[2018-04-09 11:37] VITALS: BP 109/62
[2018-04-09] MEDS ORDERED: DIGOXIN 250 MCG/ML 2 ML AMP IVP ONE (14:30)
[2018-04-09] MEDS ORDERED: SODIUM CHLORIDE 0.9% 1,000 ML IV ONE (15:00)
[2018-04-09 15:13] VITALS: BP 101/67
[2018-04-09 19:50] VITALS: BP 104/71
[2018-04-10 00:31] VITALS: BP 126/62
[2018-04-10 05:05] VITALS: BP 133/74
[2018-04-10 05:20] LABS: GLUCOMETER DEV NAME(LOC) 5S 2Q; GLUCOSE,POINT OF CARE 98 MG/DL (70-110)
[2018-04-10 07:35] VITALS: BP 132/73
[2018-04-10] MEDS: ASPIRIN 81 MG CHEWABLE TABLET PO SCH (09:18)
[2018-04-10] MEDS: MULTIVITAMINS WITH MINERALS, THERAPEUTIC TABLET PO SCH (09:18)
[2018-04-10] MEDS: DOCUSATE SODIUM 100 MG CAPSULE PO SCH ×2 (09:18→21:31)
[2018-04-10] MEDS: ENOXAPARIN SODIUM 40 MG/0.4 ML PF SYRINGE SQ SCH (09:19)
[2018-04-10] MEDS: DILTIAZEM HCL 60 MG TABLET PO SCH ×2 (09:19→15:47)
[2018-04-10 09:48] LABS: GLUCOMETER DEV NAME(LOC) 5S 2Q; GLUCOSE,POINT OF CARE 90 MG/DL (70-110)
[2018-04-10 11:24] VITALS: BP 124/71
[2018-04-10] MEDS: ACETAMINOPHEN 325 MG TABLET PO PRN (11:34)
[2018-04-10 14:56] VITALS: BP 103/60
[2018-04-10 19:58] VITALS: BP 97/61
[2018-04-10 21:49] LABS: GLUCOMETER DEV NAME(LOC) 5N 2S; GLUCOSE,POINT OF CARE 119 MG/DL (70-110)
[2018-04-10 21:49] LABS: GLUCOMETER DEV NAME(LOC) 5N 2S; GLUCOSE,POINT OF CARE 145 MG/DL (70-110)
[2018-04-10 21:49] LABS: GLUCOMETER DEV NAME(LOC) 5N 2S; GLUCOSE,POINT OF CARE 105 MG/DL (70-110)
[2018-04-10 21:49] LABS: GLUCOMETER DEV NAME(LOC) 5N 2S; GLUCOSE,POINT OF CARE 95 MG/DL (70-110)
[2018-04-10 21:49] LABS: GLUCOMETER DEV NAME(LOC) 5N 2S; GLUCOSE,POINT OF CARE 104 MG/DL (70-110)
[2018-04-10] MEDS: INSULIN LISPRO 100 UNITS/ML SQ PRN (22:07)
[2018-04-11 00:05] VITALS: BP 101/66
[2018-04-11] MEDS: DILTIAZEM HCL 60 MG TABLET PO SCH ×4 (00:35→20:37)
[2018-04-11 02:43] LABS: GLUCOMETER DEV NAME(LOC) 5S 2Q; GLUCOSE,POINT OF CARE 101 MG/DL (70-110)
[2018-04-11 02:43] LABS: GLUCOMETER DEV NAME(LOC) 5S 2Q; GLUCOSE,POINT OF CARE 102 MG/DL (70-110)
[2018-04-11 02:43] LABS: GLUCOMETER DEV NAME(LOC) 5S 2Q; GLUCOSE,POINT OF CARE 93 MG/DL (70-110)
[2018-04-11 05:06] VITALS: BP 111/69
[2018-04-11] MEDS: MORPHINE SULFATE 2 MG/ML SYRINGE IVP PRN (06:55)
[2018-04-11 07:42] VITALS: BP 133/77
[2018-04-11] MEDS: ENOXAPARIN SODIUM 40 MG/0.4 ML PF SYRINGE SQ SCH (08:43)
[2018-04-11] MEDS: ASPIRIN 81 MG CHEWABLE TABLET PO SCH (08:43)
[2018-04-11] MEDS: DOCUSATE SODIUM 100 MG CAPSULE PO SCH ×2 (08:43→20:37)
[2018-04-11] MEDS: MULTIVITAMINS WITH MINERALS, THERAPEUTIC TABLET PO SCH (08:43)
[2018-04-11 11:43] VITALS: BP 126/76
[2018-04-11 16:38] VITALS: BP 143/79
[2018-04-11 19:24] VITALS: BP 110/66
[2018-04-11 20:59] LABS: GLUCOMETER DEV NAME(LOC) 5N 2S; GLUCOSE,POINT OF CARE 91 MG/DL (70-110)
[2018-04-11 20:59] LABS: GLUCOMETER DEV NAME(LOC) 5N 2S; GLUCOSE,POINT OF CARE 102 MG/DL (70-110)
[2018-04-11 20:59] LABS: GLUCOMETER DEV NAME(LOC) 5N 2S; GLUCOSE,POINT OF CARE 98 MG/DL (70-110)
[2018-04-11 21:49] LABS: GLUCOMETER DEV NAME(LOC) 5S 2Q; GLUCOSE,POINT OF CARE 119 MG/DL (70-110)
[2018-04-12] VITALS (8 sets, daily range): BP systolic 107–138; BP diastolic 65–99
[2018-04-12] MEDS: MORPHINE SULFATE 2 MG/ML SYRINGE IVP PRN (05:09)
[2018-04-12 07:04] LABS: GLUCOMETER DEV NAME(LOC) 5N 2S; GLUCOSE,POINT OF CARE 95 MG/DL (70-110)
[2018-04-12] MEDS: MULTIVITAMINS WITH MINERALS, THERAPEUTIC TABLET PO SCH (09:03)
[2018-04-12] MEDS: DILTIAZEM HCL 60 MG TABLET PO SCH ×3 (09:03→21:06)
[2018-04-12] MEDS: DOCUSATE SODIUM 100 MG CAPSULE PO SCH ×2 (09:03→21:08)
[2018-04-12] MEDS: ENOXAPARIN SODIUM 40 MG/0.4 ML PF SYRINGE SQ SCH (09:03)
[2018-04-12] MEDS: ASPIRIN 81 MG CHEWABLE TABLET PO SCH (09:03)
[2018-04-12] MEDS ORDERED: ONDANSETRON HCL 4 MG/2 ML VIAL IM PRN (11:45)
[2018-04-12] MEDS: ONDANSETRON HCL 4 MG/2 ML VIAL IVP PRN (12:15)
[2018-04-12 13:54] LABS: GLUCOMETER DEV NAME(LOC) 5S 2Q; GLUCOSE,POINT OF CARE 97 MG/DL (70-110)
[2018-04-12] MEDS: INSULIN LISPRO 100 UNITS/ML SQ PRN (17:12)
[2018-04-12 18:39] LABS: GLUCOMETER DEV NAME(LOC) 5S 2Q; GLUCOSE,POINT OF CARE 111 MG/DL (70-110)
[2018-04-12] MEDS: ACETAMINOPHEN 325 MG TABLET PO PRN (23:36)
[2018-04-12 23:53] LABS: GLUCOMETER DEV NAME(LOC) 5S 2Q; GLUCOSE,POINT OF CARE 89 MG/DL (70-110)
[2018-04-12 23:53] LABS: GLUCOMETER DEV NAME(LOC) 5S 2Q; GLUCOSE,POINT OF CARE 93 MG/DL (70-110)
[2018-04-13] MEDS ORDERED: ONDANSETRON HCL 4 MG/2 ML VIAL IVP PRN
[2018-04-13] MEDS: ONDANSETRON HCL 4 MG/2 ML VIAL IVP PRN ×3 (00:01→21:11)
[2018-04-13 04:53] VITALS: BP 121/80
[2018-04-13 07:15] VITALS: BP 116/78
[2018-04-13] MEDS: DOCUSATE SODIUM 100 MG CAPSULE PO SCH ×2 (08:50→21:00)
[2018-04-13] MEDS: MULTIVITAMINS WITH MINERALS, THERAPEUTIC TABLET PO SCH (08:50)
[2018-04-13] MEDS: ENOXAPARIN SODIUM 40 MG/0.4 ML PF SYRINGE SQ SCH (08:57)
[2018-04-13] MEDS: DILTIAZEM HCL 60 MG TABLET PO SCH ×3 (09:00→21:22)
[2018-04-13 11:21] VITALS: BP 113/74
[2018-04-13] MEDS: DEXTROSE 5%-0.45% SODIUM CHL 1,000 ML IV SCH (11:28)
[2018-04-13] MEDS: METOCLOPRAMIDE HCL 5 MG/ML 2 ML VIAL IVP SCH ×2 (11:29→16:56)
[2018-04-13 16:13] VITALS: BP 116/76
[2018-04-13 20:03] VITALS: BP 140/84
[2018-04-13 21:04] LABS: GLUCOMETER DEV NAME(LOC) 5N 2S; GLUCOSE,POINT OF CARE 157 MG/DL (70-110)
[2018-04-13 21:04] LABS: GLUCOMETER DEV NAME(LOC) 5N 2S; GLUCOSE,POINT OF CARE 120 MG/DL (70-110)
[2018-04-13 21:04] LABS: GLUCOMETER DEV NAME(LOC) 5N 2S; GLUCOSE,POINT OF CARE 115 MG/DL (70-110)
[2018-04-13] MEDS: INSULIN LISPRO 100 UNITS/ML SQ PRN (21:17)
[2018-04-13 21:23] LABS: GLUCOMETER DEV NAME(LOC) 6N 1E; GLUCOSE,POINT OF CARE 151 MG/DL (70-110)
[2018-04-13] MEDS: MORPHINE SULFATE 2 MG/ML SYRINGE IVP PRN (21:23)
[2018-04-14] VITALS (8 sets, daily range): BP systolic 90–137; BP diastolic 56–77
[2018-04-14] MEDS: METOCLOPRAMIDE HCL 5 MG/ML 2 ML VIAL IVP SCH ×4 (00:25→23:50)
[2018-04-14] MEDS: OxyCODONE HCL/ACETAMINOPHEN 5-325 MG TABLET PO PRN (00:28)
[2018-04-14] MEDS: DEXTROSE 5%-0.45% SODIUM CHL 1,000 ML IV SCH ×2 (03:54→22:42)
[2018-04-14] MEDS: ONDANSETRON HCL 4 MG/2 ML VIAL IVP PRN ×2 (03:56→12:04)
[2018-04-14] MEDS: MORPHINE SULFATE 2 MG/ML SYRINGE IVP PRN ×3 (04:04→15:33)
[2018-04-14] MEDS: INSULIN LISPRO 100 UNITS/ML SQ PRN (06:07)
[2018-04-14 06:09] LABS: GLUCOMETER DEV NAME(LOC) 6N 2D; GLUCOSE,POINT OF CARE 150 MG/DL (70-110)
[2018-04-14] MEDS: ENOXAPARIN SODIUM 40 MG/0.4 ML PF SYRINGE SQ SCH (08:22)
[2018-04-14] MEDS: DILTIAZEM HCL 60 MG TABLET PO SCH ×3 (08:24→19:57)
[2018-04-14] MEDS: DOCUSATE SODIUM 100 MG CAPSULE PO SCH ×2 (09:00→19:59)
[2018-04-14] MEDS: MULTIVITAMINS WITH MINERALS, THERAPEUTIC TABLET PO SCH (09:00)
[2018-04-14 12:43] LABS: GLUCOMETER DEV NAME(LOC) 6N 2D; GLUCOSE,POINT OF CARE 156 MG/DL (70-110)
[2018-04-14] MEDS: ACETAMINOPHEN 325 MG TABLET PO PRN ×2 (15:46→20:08)
[2018-04-14 19:48] LABS: GLUCOMETER DEV NAME(LOC) 6N 2D; GLUCOSE,POINT OF CARE 127 MG/DL (70-110)
[2018-04-14] MEDS ORDERED: 0.9% SODIUM CHLORIDE 5 ML NEB SOLUTION NEB ONE (20:07)
[2018-04-14 22:34] LABS: GLUCOMETER DEV NAME(LOC) 6N 1E; GLUCOSE,POINT OF CARE 134 MG/DL (70-110)
[2018-04-15] VITALS (7 sets, daily range): BP systolic 52–118; BP diastolic 24–67
[2018-04-15 06:48] LABS: GLUCOMETER DEV NAME(LOC) 6N 1E; GLUCOSE,POINT OF CARE 90 MG/DL (70-110)
[2018-04-15] MEDS: ENOXAPARIN SODIUM 40 MG/0.4 ML PF SYRINGE SQ SCH (08:03)
[2018-04-15] MEDS: METOCLOPRAMIDE HCL 5 MG/ML 2 ML VIAL IVP SCH (08:04)
[2018-04-15] MEDS: MULTIVITAMINS WITH MINERALS, THERAPEUTIC TABLET PO SCH (08:13)
[2018-04-15] MEDS: DOCUSATE SODIUM 100 MG CAPSULE PO SCH (08:13)
[2018-04-15] MEDS: DILTIAZEM HCL 60 MG TABLET PO SCH (09:22)
[2018-04-15] MEDS ORDERED: LORazepam 2 MG/ML VIAL IVP PRN (11:00)
[2018-04-15] MEDS ORDERED: MORPHINE SULFATE 2 MG/ML SYRINGE IVP PRN (11:00)
== END 2018-04-15 12:30 | disposition expired | DRG 180 ==
LOC: EMS 11:43 → 6N 18:31 → 5S 04-05 10:55 → 6N 04-13 18:00
PROVIDERS: ADMIT Internal Medicine; ATTEND Internal Medicine
PROC: 0BBJ3ZX Excision of Left Lower Lung Lobe, Percutaneous Approach, Diagnostic (ICD-10-PCS; principal; 2018-04-05 11:30)
DX: C34.90 Malignant neoplasm of unspecified part of unspecified bronchus or lung (principal); E43 Unspecified severe protein-calorie malnutrition; I47.1 Supraventricular tachycardia; R62.7 Adult failure to thrive; E83.52 Hypercalcemia; I10 Essential (primary) hypertension; E11.9 Type 2 diabetes mellitus without complications; F17.210 Nicotine dependence, cigarettes, uncomplicated; J44.9 Chronic obstructive pulmonary disease, unspecified; I25.10 Atherosclerotic heart disease of native coronary artery without angina pectoris; F03.90 Unspecified dementia, unspecified severity, without behavioral disturbance, psychotic disturbance, mood disturbance, and anxiety; F15.10 Other stimulant abuse, uncomplicated; E78.5 Hyperlipidemia, unspecified; I48.0 Paroxysmal atrial fibrillation; Z86.73 Personal history of transient ischemic attack (TIA), and cerebral infarction without residual deficits; Z83.3 Family history of diabetes mellitus; Z82.49 Family history of ischemic heart disease and other diseases of the circulatory system; Z95.5 Presence of coronary angioplasty implant and graft; Z90.49 Acquired absence of other specified parts of digestive tract; Z68.20 Body mass index [BMI] 20.0-20.9, adult; Z79.4 Long term (current) use of insulin; Z91.19 Patient's noncompliance with other medical treatment and regimen
CPT/HCPCS: 32405; 51702; 71260; 84132; 87015; 87040; 87070; 87081; 87205; 87206; 88305; 88341; 88342; 93005; 93306; 94640; 96361; 96374; 96375; 96376; 97163; 99285; J1160; J1650; J2060; J2250; J2270; J2405; J2704; J2765; J3490; J7030; J7050